=== PATIENT | male | born 1995 | race Two or more races ===

== ENCOUNTER 2018-08-25 13:54 | Emergency (ER) | payer OTHER ==
[~2018-08-25] VITALS: Ht 175.3 cm; Wt 74.5 kg
[2018-08-25 13:57] VITALS: BP 151/97
== END 2018-08-25 15:12 | disposition home or self-care (01) ==
LOC: ED 15:06
DX: S06.0X9A Concussion with loss of consciousness of unspecified duration, initial encounter (principal); S05.12XA Contusion of eyeball and orbital tissues, left eye, initial encounter; Y93.89 Activity, other specified; Y92.89 Other specified places as the place of occurrence of the external cause; Y99.8 Other external cause status; Y04.8XXA Assault by other bodily force, initial encounter
CPT/HCPCS: 70450; 70486; 99284